=== PATIENT | female | born 1990 | race Caucasian/White ===

== ENCOUNTER 2018-05-10 20:57 | Outpatient (CLI) | payer OTHER ==
[~2018-05-10 20:57] MED LIST: PREN1TAB17 PO
[2018-05-10] MEDS ORDERED: ACETAMINOPHEN 500 MG TAB PO ONE (22:56)
[2018-05-10] MEDS ORDERED: ONDANSETRON 4 MG TAB PO ONE (23:00)
--- NOTE | 2018-05-11 00:54 | PN ---
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 Reports sick contact. She denies any leaking of fluid or contractions or vaginal bleeding. Objective Heart Rate: 130's Heart Rate Comments Category 1 Contractions: None Exam General appearance: Alert and oriented x4 appears to be in mild distress Abdomen: Soft, gravid, no tenderness, no redness, no guarding, no rigidity no evidence of acute abdomen No CVA tenderness, no McBurney tenderness Extremities: No calf tenderness, no click no edema no cords palpable Lungs: Clear to auscultation bilaterally, no wheezing, no rhonchi CV: RRR Laboratory Tests Test 05/10/18 19:15 05/10/18 23:17 05/10/18 23:20 Urine Color YELLOW Urine Clarity CLOUDY A Urine pH 8.0 Urine Specific [place] 1.017 Urine Ketones NEGATIVE Urine Nitrite NEGATIVE Urine Bilirubin NEGATIVE Urine Urobilinogen NEGATIVE Urine Leukocyte Esterase 1+ H Urine Microscopic RBC 1 Urine Microscopic WBC 5 Urine Squamous Epithelial Cells FEW Urine Amorphous Crystals FEW A Urine Bacteria FEW A Urine Hemoglobin 1+ H Urine Glucose NEGATIVE Urine Total Protein NEGATIVE White Blood Count 5.7 Red Blood Count 3.56 L Hemoglobin 10.7 L Hematocrit 33.0 L Mean Corpuscular Volume 92.7 Mean Corpuscular Hemoglobin 30.1 Mean Corpuscular Hemoglobin Concent 32.4 Red Cell Distribution Width 13.4 Platelet Count 256 Mean Platelet Volume 10.7 H Immature Granulocytes % 0.300 Neutrophils % 64.7 Lymphocytes % 23.3 Monocytes % 9.8 Eosinophils % 1.6 Basophils % 0.3 Nucleated Red Blood Cells % 0.0 Immature Granulocytes # 0.020 Neutrophils # 3.7 Lymphocytes # 1.3 Monocytes # 0.6 Eosinophils # 0.1 Basophils # 0.0 Nucleated Red Blood Cells # 0.0 Sodium Level 139 Potassium Level 3.8 Chloride Level 104 Carbon Dioxide Level 26 Anion Gap 9 Blood Urea Nitrogen 8 Creatinine 0.64 Est Glomerular Filtrat Rate mL/min > 60 Glucose Level 89 Calcium Level 9.0 Total Bilirubin 0.4 Direct Bilirubin 0.00 Indirect Bilirubin 0.4 Aspartate Amino Transf (AST/SGOT) 16 Alanine Aminotransferase (ALT/SGPT) 12 L Alkaline Phosphatase 218 H Total Protein 6.1 Albumin 3.2 L Globulin 2.90 Albumin/Globulin Ratio 1.10 Results/Medications Result Diagram: 05/10/18 2316 05/10/18 2320 Results 24 hrs Laboratory Tests Test 05/10/18 19:15 05/10/18 23:17 05/10/18 23:20 Urine Color YELLOW Urine Clarity CLOUDY A Urine pH 8.0 Urine Specific [place] 1.017 Urine Ketones NEGATIVE Urine Nitrite NEGATIVE Urine Bilirubin NEGATIVE Urine Urobilinogen NEGATIVE Urine Leukocyte Esterase 1+ H Urine Microscopic RBC 1 Urine Microscopic WBC 5 Urine Squamous Epithelial Cells FEW Urine Amorphous Crystals FEW A Urine Bacteria FEW A Urine Hemoglobin 1+ H Urine Glucose NEGATIVE Urine Total Protein NEGATIVE White Blood Count 5.7 Red Blood Count 3.56 L Hemoglobin 10.7 L Hematocrit 33.0 L Mean Corpuscular Volume 92.7 Mean Corpuscular Hemoglobin 30.1 Mean Corpuscular Hemoglobin Concent 32.4 Red Cell Distribution Width 13.4 Platelet Count 256 Mean Platelet Volume 10.7 H Immature Granulocytes % 0.300 Neutrophils % 64.7 Lymphocytes % 23.3 Monocytes % 9.8 Eosinophils % 1.6 Basophils % 0.3 Nucleated Red Blood Cells % 0.0 Immature Granulocytes # 0.020 Neutrophils # 3.7 Lymphocytes # 1.3 Monocytes # 0.6 Eosinophils # 0.1 Basophils # 0.0 Nucleated Red Blood Cells # 0.0 Sodium Level 139 Potassium Level 3.8 Chloride Level 104 Carbon Dioxide Level 26 Anion Gap 9 Blood Urea Nitrogen 8 Creatinine 0.64 Est Glomerular Filtrat Rate mL/min > 60 Glucose Level 89 Calcium Level 9.0 Total Bilirubin 0.4 Direct Bilirubin 0.00 Indirect Bilirubin 0.4 Aspartate Amino Transf (AST/SGOT) 16 Alanine Aminotransferase (ALT/SGPT) 12 L Alkaline Phosphatase 218 H Total Protein 6.1 Albumin 3.2 L Globulin 2.90 Albumin/Globulin Ratio 1.10 Disposition: Discharge Assessment/Plan IUP at38 weeks and 5 days IUP at 38 weeks and 5 days headache, dizziness, nausea, no evidence of labor cough, stuffy nose, symptoms related related to URI Symptoms improved after she received Tylenol, hydration, antiemetic, tolerate p.o. Labs unremarkable Decreased movement, BPP reassuring DC home Continue Tylenol Benadryl as needed Labor precaution kick count discussed Follow-up with primary OB office within 48 hours after discharge from the hospital discussed Return to triage as needed, leaking of fluid, vaginal bleeding decreased movement or any other concerns MARILIN AGUIRRE MD May 11, 2018 00:54
--- NOTE | 2018-05-11 03:04 | TRIAGE ---
OB Triage Datetime Report Generated by CPN: 05/11/2018 03:03 Datetime: 05/11/2018 00:30 Stage of : OB Triage Quality: Mild Pattern: Normal: <= 5 Contractions in 10 Minutes Resting Tone [place]: Relaxed Heart Rate FHR Baseline Rate: 135 Monitor Mode: External US FHR Baseline Changes: No Baseline Change Variability: Moderate 6-25 bpm Accelerations: 15X15 Decelerations: None Category: Category I Pain Assessment Pain Scale: 1 Pain Presence: Constant Pain Type: Ache Pain Location: Head Datetime: 05/10/2018 23:37 Stage of : OB Triage FHR Baseline Changes: No Baseline Change Variability: Moderate 6-25 bpm Accelerations: 15X15 Decelerations: None Category: Category III Datetime: 05/10/2018 22:56 Stage of : OB Triage Labor Evaluation Monitor Mode: External Quality: Mild Pattern: Normal: <= 5 Contractions in 10 Minutes Resting Tone [place]: Relaxed Heart Rate FHR Baseline Rate: 130 Monitor Mode: External US FHR Baseline Changes: No Baseline Change Variability: Moderate 6-25 bpm Accelerations: 15X15 Decelerations: None Category: Category I Datetime: 05/10/2018 22:15 Stage of : OB Triage Labor Evaluation Monitor Mode: External Quality: Mild Pattern: Normal: <= 5 Contractions in 10 Minutes Resting Tone [place]: Relaxed Heart Rate FHR Baseline Rate: 130 Monitor Mode: External US FHR Baseline Changes: No Baseline Change Variability: Moderate 6-25 bpm Accelerations: 15X15 Decelerations: Variable Category: Category II Datetime: 05/10/2018 21:42 Vaginal Exam Membrane Status: Intact Datetime: 05/10/2018 21:30 Time of Arrival: 05/10/2018 20:47 EGA: 38.5 Arrived By: Ambulatory Arrived From: Home Chief Complaint: hx c/s x1 c/o ucs, DFM,MAZARIEGOS Dizziness,n/v and cold s/s x3 days Movement: Decreased Contractions: Denies/Absent Rupture of Membranes: Denies Vaginal Bleeding: None Vaginal Discharge: Denies Recent Sexual Intercouse: Denies Abdominal Trauma: Not Applicable Patient Complaints: Cramping; Headache; Nausea; Vomiting; Pain on Urination; Dizziness Additional Patient Complaints: hx asthma. Pt states plans Time Provider Notified: 05/10/2018 22:15 Provider Notified: Dr Velazquez Initial Plan: UA,CBC,CMP,BPP,EFW,TYLENOL,ZOFRAM PO Datetime: 05/10/2018 21:11 Stage of : OB Triage Maternal Assessment Level of Consciousness: Fully Conscious DTR's/Clonus: DTRs 2+; No Clonus Headache: Temporal Blurred Vision: No Respiratory Effort: Unlabored Breath Sounds, Left: Clear and Equal Breath Sounds, Right: Clear and Equal Nausea/Vomiting: Hx of Nausea/Vomiting RUQ Epigastric Pain: Denies Facial Edema: None Labor Evaluation Monitor Mode: External Resting Tone [place]: Relaxed Heart Rate FHR Baseline Rate: 135 Monitor Mode: External US Pain Assessment Pain Scale: 6 Pain Presence: Constant Pain Type: Pressure; Ache Pain Location: Head
== END 2018-05-11 00:40 | disposition home or self-care (01) ==
LOC: OBT 20:57 → MERGE 20:57 → L-D 20:59 → OBT 05-11 00:40
PROVIDERS: ATTEND Specialist
DX: O36.8130 Decreased fetal movements, third trimester, not applicable or unspecified (principal); Z3A.38 38 weeks gestation of pregnancy
CPT/HCPCS: 36415; 76818; 80053; 81001; 85025; Z7500; Z7610; G0463